=== PATIENT | female | born 1990 | race American Indian/Alaskan Native ===

== ENCOUNTER 2017-05-13 09:08 | Emergency (ER) | payer MEDICAID ==
[2017-05-13 09:31] VITALS: BP 115/83
--- NOTE | 2017-05-13 09:34 | Emergency Department Report ---
Chief Complaint: Abdominal Pain Stated Complaint: BROWN DISCHARGE Time Seen by Provider: 05/13/17 09:30 - HPI History of Present Illness: PT states she is 10 weeks . PT states she started spotting today. PT states she has been to the OB/ [facility] this in April and had appointment with specialist on 05-03-17 due to her hx of miscarriage and stillbirth. - ROS Review of Systems: + abd pain + vaginal bleeding - Exam Vital Signs: Vital Signs 05/13/17 09:25 Temperature 98.4 F Pulse Rate 98 H Respiratory 18 Rate Blood Pressure 115/83 O2 Sat by Pulse 100 Oximetry Physical Exam: pt has a flat affect abd soft and non tender MSE screening note: Focused history and physical exam performed. Due to findings the following was ordered: labs, us ED Disposition for MSE Condition: Stable Instructions: Abdominal Pain (ED)
[2017-05-13 10:13] LABS: Basophils % (Auto) 0.8 % (0.0-1.8); Hematocrit 40.1 % (30.3-42.9); Hemoglobin 13.8 gm/dl (10.1-14.3); Mean Corpuscular HGB Conc 34 % (30-34); Mean Corpuscular Hemoglobin 31 pg (28-32); Mean Corpuscular Volume 90 fl (79-97); Platelet Count 234 K/mm3 (140-440); Red Blood Count 4.45 M/mm3 (3.65-5.03); Red Cell Distribution Width 12.7 % (13.2-15.2); White Blood Count 6.2 K/mm3 (4.5-11.0)
[2017-05-13 10:20] LABS: Bilirubin,Urine NEG (Negative); Blood,Urine NEG (Negative); Ketones,Urine NEG (Negative); Leukocyte Esterase,Urine NEG (Negative); Mucus,Urine FEW /HPF; Nitrite,Urine NEG (Negative); Protein,Urine <15 mg/dL mg/dL (Negative); Urobilinogen,Urine < 2.0 mg/dL (<2.0)
[2017-05-13 10:23] LABS: Alanine Aminotransferase 9 units/L (7-56); Albumin 4.1 g/dL (3.9-5); Albumin/Globulin Ratio 1.3 %; Alkaline Phosphatase 53 units/L (35-129); Anion Gap 20 mmol/L; BUN/Creatinine Ratio 16.66; Blood Urea Nitrogen 5 mg/dL (7-17); Calcium 8.8 mg/dL (8.4-10.2); Carbon Dioxide 18 mmol/L (22-30); Chloride 101.6 mmol/L (98-107); Glucose 89 mg/dL (65-100); Potassium 3.8 mmol/L (3.6-5.0); Sodium 136 mmol/L (137-145); Total Protein 7.3 g/dL (6.3-8.2)
--- NOTE | 2017-05-13 11:35 | Emergency Department Report ---
ED HPI - General Chief complaint: Abdominal Pain Stated complaint: BROWN DISCHARGE Time Seen by Provider: 05/13/17 09:30 Source: patient Mode of arrival: Ambulatory Limitations: No Limitations - History of Present Illness Initial comments: 26-year-old A2 female here with complaint of abdominal cramping and dark brownish vaginal discharge that started last night. Patient recently had an ultrasound which showed, confirmed an IUP. No fevers chills nausea vomiting. No bright red blood. She has not had any recent sexual intercourse. MD Complaint: vaginal bleeding -: Sudden Location: pelvis Radiation: none Severity: mild Quality: cramping Improves with: none Worsens with: none Associated symptoms: abdominal pain. denies: nausea/vomiting, vaginal bleeding , headache, vision changes Vaginal bleeding: light :: Yes - Related Data Home Medications Medication Instructions Recorded Confirmed Last Taken Pnv95/Ferrous Fumarate/FA 1 each PO DAILY 08/20/16 08/22/16 08/20/16 08:00 [ [place]] Previous Rx's Medication Instructions Recorded Last Taken Type HYDROcodone/APAP 5-325 [[place] 1 each PO Q6HR PRN #10 tablet 08/20/16 08/20/16 08 :00 Rx 5/325] Ibuprofen [Motrin 800 MG tab] 800 mg PO Q8HR PRN #20 tablet 08/20/16 Unknown Rx Ibuprofen [Motrin] 800 mg PO Q8HR PRN #60 tablet 08/22/16 Unknown Rx oxyCODONE /ACETAMINOPHEN [Percocet 1 tab PO Q6HR PRN #30 tablet 08/22/16 Unknown Rx 5/325] Allergies Allergy/AdvReac Type Severity Reaction Status Date / Time banana [Banana] Allergy Itching Verified 08/20/16 17:23 Fish Containing Products Allergy Swelling Verified 08/20/16 17:23 watermelon Allergy Swelling Uncoded 08/20/16 17:23 ED Review of Systems ROS: Stated complaint: BROWN DISCHARGE Other details as noted in HPI Comment: All other systems reviewed and negative Constitutional: denies: chills, fever Eyes: denies: eye pain, eye discharge, vision change ENT: denies: ear pain, throat pain Respiratory: denies: cough, shortness of breath, wheezing Cardiovascular: denies: chest pain, palpitations Endocrine: no symptoms reported Gastrointestinal: denies: abdominal pain, nausea, diarrhea Genitourinary: denies: urgency, dysuria, discharge Musculoskeletal: denies: back pain, joint swelling, arthralgia Skin: denies: rash, lesions Neurological: denies: headache, weakness, paresthesias Psychiatric: denies: anxiety, depression Hematological/Lymphatic: denies: easy bleeding, easy bruising ED Past Medical Hx - Past Medical History Previous Medical History?: Yes Hx Hypertension: No Hx Headaches / Migraines: Yes Hx Asthma: Yes (last treated 2010) Additional medical history: eczema - Surgical History Past Surgical History?: Yes Additional Surgical History: DNC August 2016 - Social History Smoking Status: Never Smoker Substance Use Type: None - Medications Home Medications: Home Medications Medication Instructions Recorded Confirmed Last Taken Type HYDROcodone/APAP 5-325 [[place] 1 each PO Q6HR PRN #10 tablet 08/20/16 08/22/16 08:00 Rx 5/325] Ibuprofen [Motrin 800 MG tab] 800 mg PO Q8HR PRN #20 tablet 08/20/16 08/20/16 Unknown Rx Pnv95/Ferrous Fumarate/FA 1 each PO DAILY 08/20/16 08/22/16 08/20/16 08:00 History [ [place]] Ibuprofen [Motrin] 800 mg PO Q8HR PRN #60 tablet 08/22/16 Unknown Rx oxyCODONE /ACETAMINOPHEN [Percocet 1 tab PO Q6HR PRN #30 tablet 08/22/16 Unknown Rx 5/325] ED Physical Exam - General Limitations: No Limitations General appearance: alert, in no apparent distress - Head Head exam: Present: atraumatic, normocephalic - Eye Eye exam: Present: normal appearance - ENT ENT exam: Present: mucous membranes moist - Neck Neck exam: Present: normal inspection - Respiratory Respiratory exam: Present: normal lung sounds bilaterally. Absent: respiratory distress - Cardiovascular Cardiovascular Exam: Present: regular rate, normal rhythm, normal heart sounds. Absent: systolic murmur, diastolic murmur, rubs, gallop - GI/Abdominal GI/Abdominal exam: Present: soft, normal bowel sounds. Absent: distended, tenderness, guarding, rebound, rigid - Extremities Exam Extremities exam: Present: normal inspection - Back Exam Back exam: Present: normal inspection - Neurological Exam Neurological exam: Present: alert, oriented X3 - Psychiatric Psychiatric exam: Present: normal affect, normal mood - Skin Skin exam: Present: warm, dry, intact, normal color. Absent: rash ED Course Vital Signs 05/13/17 09:25 Temperature 98.4 F Pulse Rate 98 H Respiratory 18 Rate Blood Pressure 115/83 O2 Sat by Pulse 100 Oximetry ED Medical Decision Making - Lab Data Result diagrams: 05/13/17 09:49 05/13/17 09:49 Laboratory Results - last 24 hr 05/13/17 05/13/17 05/13/17 09:40 09:49 09:49 WBC 6.2 RBC 4.45 Hgb 13.8 Hct 40.1 MCV 90 MCH 31 MCHC 34 RDW 12.7 L Plt Count 234 Lymph % (Auto) 38.0 H [place] % (Auto) 10.5 H Eos % (Auto) 1.0 Baso % (Auto) 0.8 Lymph # 2.4 [place] # 0.6 Eos # 0.1 Baso # 0.0 Seg Neutrophils % 49.7 Seg Neutrophils # 3.1 Sodium 136 L Potassium 3.8 Chloride 101.6 Carbon Dioxide 18 L Anion Gap 20 BUN 5 L Creatinine 0.3 L Estimated GFR > 60 BUN/Creatinine Ratio 16.66 Glucose 89 Calcium 8.8 Total Bilirubin 0.40 AST 14 ALT 9 Alkaline Phosphatase 53 Total Protein 7.3 Albumin 4.1 Albumin/Globulin Ratio 1.3 HCG, Quant Urine Color Yellow Urine Turbidity Clear Urine pH 6.0 Ur Specific [place] 1.014 Urine Protein <15 mg/dl Urine Glucose (UA) Neg Urine Ketones Neg Urine Blood Neg Urine Nitrite Neg Urine Bilirubin Neg Urine Urobilinogen < 2.0 Ur Leukocyte Esterase Neg Urine WBC (Auto) 1.0 Urine RBC (Auto) 3.0 Urine Mucus Few Blood Type 05/13/17 05/13/17 09:49 09:49 WBC RBC Hgb Hct MCV MCH MCHC RDW Plt Count Lymph % (Auto) [place] % (Auto) Eos % (Auto) Baso % (Auto) Lymph # [place] # Eos # Baso # Seg Neutrophils % Seg Neutrophils # Sodium Potassium Chloride Carbon Dioxide Anion Gap BUN Creatinine Estimated GFR BUN/Creatinine Ratio Glucose Calcium Total Bilirubin AST ALT Alkaline Phosphatase Total Protein Albumin Albumin/Globulin Ratio HCG, Quant 86913 H Urine Color Urine Turbidity Urine pH Ur Specific [place] Urine Protein Urine Glucose (UA) Urine Ketones Urine Blood Urine Nitrite Urine Bilirubin Urine Urobilinogen Ur Leukocyte Esterase Urine WBC (Auto) Urine RBC (Auto) Urine Mucus Blood Type B POSITIVE - Medical Decision Making 26-year-old female here with complaints of abdominal cramping in new onset vaginal discharge, which likely is dark brown blood. Patient started feeling symptoms last night. She appears otherwise well. Denies fevers chills nausea vomiting. Her beta hCG 65,000. Critical care attestation.: If time is entered above; I have spent that time in minutes in the direct care of this critically ill patient, excluding procedure time. ED Disposition Clinical Impression: Vaginal bleeding before 22 weeks gestation Disposition: DC- TO HOME OR SELFCARE Is pt being admited?: No Condition: Stable Instructions: Abdominal Pain (ED) Additional Instructions: Please follow-up with your OB. Referrals: PRIMARY CARE [Primary Care Provider] - 3-5 Days
--- NOTE | 2017-05-13 11:39 | Ultrasound Report ---
ULTRASOUND OB LESS THAN 14 WEEKS - TRANSABDOMINAL AND TRANSVAGINAL INDICATION: 10 weeks , vaginal bleeding. Serum beta-hCG 65,261 units. COMPARISON: None similar during this gestation. FINDINGS: Transabdominal and transvaginal pelvic sonography performed in this patient with estimated menstrual age of 10 weeks and 2 days per outside ultrasound. It demonstrates an anteverted, gravid uterus estimated at 9.2 x 5.3 x 6.7 cm with a single, viable intrauterine gestation with heart rate of 176 beats per minute. Mean crown-rump length of 3.7 cm corresponds to 10 weeks and 4 days. No significant free fluid. Unremarkable 3.2 x 1.2 x 1.2 cm right ovary. Left ovary 3.2 x 1.7 x 1.5 cm with a 1.2 cm complex slightly hypoechoic intrinsic focus, image 28. CONCLUSION: 1. Single, live intrauterine gestation with an ultrasound estimated age of 10 weeks and 4 days and MINOO of 12/05/2017. 2. Other findings, as above. Thank you for the opportunity to participate in this patient's care.
== END 2017-05-13 14:30 | disposition home or self-care (01) ==
LOC: ED 09:08
DX: O46.91 Antepartum hemorrhage, unspecified, first trimester (principal); G43.909 Migraine, unspecified, not intractable, without status migrainosus; J45.909 Unspecified asthma, uncomplicated; Z91.013 Allergy to seafood; Z91.018 Allergy to other foods; Z3A.01 Less than 8 weeks gestation of pregnancy
CPT/HCPCS: 36415; 76801; 76817; 80053; 81001; 84702; 85025; 86900; 86901

== ENCOUNTER 2017-10-14 08:26 | Emergency (ER) | payer MEDICAID ==
[2017-10-14] MEDS ORDERED: ZOFRAN IV ONE (14:16)
[2017-10-14] MEDS ORDERED: NACL 0.9% 1000 ML 1,000 ML IV ONE (14:16)
--- NOTE | 2017-10-14 14:18 | Emergency Department Report ---
Blank Doc - Documentation Documentation: Patient is 31 years old female, 32 weeks , presented with cough and shortness of breath and tachycardia for the last 3 days. Patient also stated that she been having nausea and vomiting. Patient denied any abdominal pain, vaginal bleeding or vaginal discharge. On exam patient is moderately dehydrated with dry skin. Heart exam tachycardia. Abdomen is gravid but nontender. Patient denied any [id number] use for her cough takes examined her current tachycardia. Patient will need further workup and will need to be moved to [place] ED.
[2017-10-14 14:42] LABS: Hematocrit 35.4 % (30.3-42.9); Hemoglobin 11.8 gm/dl (10.1-14.3); Mean Corpuscular HGB Conc 33 % (30-34); Mean Corpuscular Hemoglobin 30 pg (28-32); Mean Corpuscular Volume 89 fl (79-97); Platelet Count 145 K/mm3 (140-440); Red Blood Count 3.99 M/mm3 (3.65-5.03); Red Cell Distribution Width 14.3 % (13.2-15.2)
--- NOTE | 2017-10-14 14:49 | XRay Report ---
AP CHEST: HISTORY: Dyspnea AP view of the chest demonstrates a normal mediastinal and cardiac contour with clear lungs and normal bony and soft tissue structures. IMPRESSION: Unremarkable AP chest.
[2017-10-14 15:05] LABS: Alanine Aminotransferase 20 units/L (7-56); Albumin 3.5 g/dL (3.9-5); BUN/Creatinine Ratio 13; Blood Urea Nitrogen 5 mg/dL (7-17); Calcium 8.6 mg/dL (8.4-10.2); Hemolysis Index 15
[2017-10-14 15:25] LABS: Band Neutrophils # (Manual) 1.5 K/mm3; Basophils % (Manual) 0 % (0.0-1.8); Eosinophils % (Manual) 0 % (0.0-4.3); Total Cells Counted 100
[2017-10-14 15:26] LABS: Ovalocytes Few; Platelet Estimate Consistent w Auto
[2017-10-14 15:55] VITALS: BP 118/75
[2017-10-14 16:12] LABS: Bacteria,Urine 2+ /HPF (Negative); Bilirubin,Urine NEG (Negative); Blood,Urine NEG (Negative); Color,Urine Yellow (Yellow); Mucus,Urine FEW /HPF; Nitrite,Urine NEG (Negative); Protein,Urine <15 mg/dL mg/dL (Negative); RBC,Urine < 1.0 /HPF (0.0-6.0); WBC,Urine < 1.0 /HPF (0.0-6.0)
[2017-10-14 16:14] LABS: HCG Qualitative,Urine Positive (Negative)
--- NOTE | 2017-10-14 16:20 | Emergency Department Report ---
- General Chief Complaint: Upper Respiratory Infection Stated Complaint: EVERYTHING HURTS Time Seen by Provider: 10/14/17 14:10 Source: patient Mode of arrival: Ambulatory Limitations: No Limitations - History of Present Illness Initial Comments: This is a 27-year-old female nontoxic, well nourished in appearance, no acute signs of distress presents to the ED with c/o of productive cough, sore throat, body aches, rhinorrhea, nasal congestion x4 days. Patient describes productive cough as yellow mucus production. Patient stated had shortness of breathe but stated it is only when she coughs but otherwise denies Shortness of breathe. Patient agrees to sick contact with child which has the upper rest or infection. Patient denies any recent travels, long car, recent hospital stays. Patient denies any calf pain or calf tenderness. Patient denies any chest pain, short of breath, fever, chills, nausea, vomiting, hemoptysis, numbness, tingling, headache or stiff neck. Patient she is currently 32 weeks with normal . She denies any vaginal discharge, abdominal pain, vaginal bleeding. Patient denies any drug allergies. Past medical history includes asthma and headache. MD Complaint: cough, sore throat, rhinorrhea, nasal congestion -: days(s) (4) Severity: mild Severity scale (0 -10): 8 Quality: aching Consistency: constant Improves With: nothing Worsens With: nothing Context: sick contacts Associated Symptoms: rhinorrhea, nasal congestion, sore throat, cough. denies: fever, chills, myalgias, diaphoresis, headache, stiff neck, chest pain, shortness of breath, abdominal pain, nausea, vomiting, diarrhea, dysuria, rash, confusion, right sweats, weight loss, epistaxis, hoarseness, ear pain Treatments Prior to Arrival: none - Related Data Home Medications Medication Instructions Recorded Confirmed Last Taken Pnv No.95/Ferrous Fum/Folic AC 1 each PO DAILY 08/20/16 08/22/16 08/20/16 08:00 [ Caplet] Previous Rx's Medication Instructions Recorded Last Taken Type HYDROcodone/APAP 5-325 [[place] 1 each PO Q6HR PRN #10 tablet 08/20/16 08/20/16 08 :00 Rx 5/325] Ibuprofen [Motrin 800 MG tab] 800 mg PO Q8HR PRN #20 tablet 08/20/16 Unknown Rx Ibuprofen [Motrin] 800 mg PO Q8HR PRN #60 tablet 08/22/16 Unknown Rx oxyCODONE /ACETAMINOPHEN [Percocet 1 tab PO Q6HR PRN #30 tablet 08/22/16 Unknown Rx 5/325] Acetaminophen 500 mg PO Q6H PRN #30 tablet 10/14/17 Unknown Rx Amoxicillin/K Clav Tab [Augmentin 1 tab PO Q12HR #20 tab 10/14/17 Unknown Rx 875 mg] Allergies Allergy/AdvReac Type Severity Reaction Status Date / Time banana [Banana] Allergy Itching Verified 10/14/17 08:43 Fish Containing Products Allergy Swelling Verified 10/14/17 08:43 watermelon Allergy Swelling Uncoded 10/14/17 08:43 ED Review of Systems ROS: Stated complaint: EVERYTHING HURTS Other details as noted in HPI Constitutional: denies: chills, fever Eyes: denies: eye pain, eye discharge, vision change ENT: throat pain. denies: ear pain Respiratory: cough. denies: shortness of breath, wheezing Cardiovascular: denies: chest pain, palpitations Endocrine: no symptoms reported Gastrointestinal: denies: abdominal pain, nausea, diarrhea Genitourinary: denies: urgency, dysuria, discharge Musculoskeletal: denies: back pain, joint swelling, arthralgia Skin: denies: rash, lesions Neurological: denies: headache, weakness, paresthesias Psychiatric: denies: anxiety, depression Hematological/Lymphatic: denies: easy bleeding, easy bruising ED Past Medical Hx - Past Medical History Previous Medical History?: Yes Hx Hypertension: No Hx Headaches / Migraines: Yes Hx Asthma: Yes (last treated 2010) Additional medical history: eczema - Surgical History Past Surgical History?: Yes Additional Surgical History: DNC August 2016 - Social History Smoking Status: Never Smoker Substance Use Type: None - Medications Home Medications: Home Medications Medication Instructions Recorded Confirmed Last Taken Type HYDROcodone/APAP 5-325 [[place] 1 each PO Q6HR PRN #10 tablet 08/20/16 08/22/16 08:00 Rx 5/325] Ibuprofen [Motrin 800 MG tab] 800 mg PO Q8HR PRN #20 tablet 08/20/16 08/20/16 Unknown Rx Pnv No.95/Ferrous Fum/Folic AC 1 each PO DAILY 08/20/16 08/22/16 08/20/16 08:00 History [ [place]] Ibuprofen [Motrin] 800 mg PO Q8HR PRN #60 tablet 08/22/16 Unknown Rx oxyCODONE /ACETAMINOPHEN [Percocet 1 tab PO Q6HR PRN #30 tablet 08/22/16 Unknown Rx 5/325] Acetaminophen 500 mg PO Q6H PRN #30 tablet 10/14/17 Unknown Rx Amoxicillin/K Clav Tab [Augmentin 1 tab PO Q12HR #20 tab 10/14/17 Unknown Rx 875 mg] ED Physical Exam - General Limitations: No Limitations General appearance: alert, in no apparent distress - Head Head exam: Present: atraumatic, normocephalic - Eye Eye exam: Present: normal appearance, PERRL, EOMI Pupils: Present: normal accommodation - ENT ENT exam: Present: mucous membranes moist, TM's normal bilaterally, normal external ear exam - Expanded ENT Exam Expanded Ear exam: Present: normal external inspection Mouth exam: Present: normal external inspection, tongue normal. Absent: drooling, trismus, muffled voice, tongue elevation, laceration Teeth exam: Present: normal inspection Throat exam: Positive: tonsillar erythema, tonsillomegaly (2+), other (Uvula midline. No abscess or swelling. ). Negative: tonsillar exudate, R peritonsillar mass, L peritonsillar mass - Neck Neck exam: Present: normal inspection, full ROM, lymphadenopathy (bilateral tonsillar). Absent: tenderness, meningismus, thyromegaly - Respiratory Respiratory exam: Present: normal lung sounds bilaterally. Absent: respiratory distress, wheezes, rales, rhonchi, stridor, chest wall tenderness, accessory muscle use, decreased breath sounds, prolonged expiratory - Cardiovascular Cardiovascular Exam: Present: regular rate, normal rhythm, tachycardia, normal heart sounds. Absent: irregular rhythm, systolic murmur, diastolic murmur, rubs , gallop - GI/Abdominal GI/Abdominal exam: Present: soft, normal bowel sounds. Absent: distended, tenderness, guarding, rebound, rigid - Rectal Rectal exam: Present: deferred - Extremities Exam Extremities exam: Present: normal inspection, full ROM, normal capillary refill. Absent: tenderness, pedal edema, joint swelling, calf tenderness - Back Exam Back exam: Present: normal inspection, full ROM. Absent: tenderness, CVA tenderness (R), CVA tenderness (L), muscle spasm, paraspinal tenderness, vertebral tenderness, rash noted - Neurological Exam Neurological exam: Present: alert, oriented X3, CN II-XII intact, normal gait, reflexes normal - Psychiatric Psychiatric exam: Present: normal affect, normal mood - Skin Skin exam: Present: warm, dry, intact, normal color. Absent: rash ED Course Vital Signs 10/14/17 10/14/17 08:31 15:54 Temperature 98.6 F 98.9 F Pulse Rate 149 H 129 H Respiratory 18 16 Rate Blood Pressure 129/75 Blood Pressure 118/75 [Left] O2 Sat by Pulse 97 100 Oximetry - Reevaluation(s) Reevaluation #1: 10/14/17 16:35 Patient is speaking in full sentences with no signs of distress noted. - Consultations Consultation #1: 10/14/17 16:35 Patient has been consulted with Dr. Coyle about patient history, physical exam , and labs and examined and screened patient and agrees to ED plan of care and discharge plan of care. ED Medical Decision Making - Lab Data Result diagrams: 10/14/17 14:28 10/14/17 14:28 - Medical Decision Making This is a 27-year-old female that presents with upper respiratory infection and tonsillitis. Patient is stable and was examined by me and Dr. Coyle. Prior to my exam, a chest x-ray has been obtained and dictated by radiologist with normal exam. Patient is notified of x-ray results with no questions noted. Due to patient having symptoms of upper respiratory infection and tonsillitis and worsening I will treat patient empirically Augmentin. Patient is above the >72 hour window for tamiflu. Patient was instructed to increase hydration, rest and take Tylenol for fever episodes. Patient received Tylenol, 1L of Normal saline, and zofran in the ED. Vitals stable. Patient is nonfebrile. Heart rate decreased. Labs within normal limits. Patient was orally hydrated and patient tolerated well known nausea or vomiting. Patient was instructed Follow-up with a primary care doctor in 3-5 days or if symptoms worsen and continue return to emergency room as soon as possible. At time time of discharge, the patient does not seem toxic or ill in appearance. No acute signs of distress noted. Patient agrees to discharge treatment plan of care. No further questions noted by the patient. Critical care attestation.: If time is entered above; I have spent that time in minutes in the direct care of this critically ill patient, excluding procedure time. ED Disposition Clinical Impression: Tonsillitis Upper respiratory infection Qualifiers: URI type: unspecified URI Qualified Code(s): J06.9 - Acute upper respiratory infection, unspecified Disposition: TO HOME OR SELFCARE Is pt being admited?: No Does the pt Need Aspirin: No Condition: Stable Instructions: Upper Respiratory Infection (ED), Electrolyte Supplement (By mouth), Acetaminophen (By mouth), Amoxicillin/Clavulanate Potassium (By mouth) Additional Instructions: Follow-up with a primary care doctor in 3-5 days or if symptoms worsen and continue return to emergency room as soon as possible. Increased rest, hydration, and take Tylenol as prescribed during Fever episode. Prescriptions: Acetaminophen 500 mg PO Q6H PRN #30 tablet PRN Reason: fever/pain Amoxicillin/K Clav Tab [Augmentin 875 mg] 1 tab PO Q12HR #20 tab Referrals: [facility] [Other] - 3-5 Days PRIMARY CAREMD [Referring] - 3-5 Days JASMYN GUZMAN MD [Staff Physician] - 3-5 Days [facility] [Outside] - 3-5 Days [facility] [Outside] - 3-5 Days Forms: Work/School Release Form(ED)
[2017-10-14] MEDS ORDERED: TYLENOL PO ONE (16:36)
== END 2017-10-14 17:00 | disposition home or self-care (01) ==
LOC: ED 08:26
DX: J06.9 Acute upper respiratory infection, unspecified (principal); J03.90 Acute tonsillitis, unspecified; G43.909 Migraine, unspecified, not intractable, without status migrainosus; Z91.013 Allergy to seafood; Z91.018 Allergy to other foods
CPT/HCPCS: 36415; 71045; 80053; 81001; 81025; 85007; 85025; 93005; 93010; 96361; 96374; 99284; J2405; J7030

== ENCOUNTER 2017-11-05 12:02 | Outpatient (CLI) | payer MEDICAID ==
[2017-11-05] MEDS ORDERED: LACTATED RINGERS 500 ML IV ONE (12:27)
[2017-11-05] MEDS ORDERED: BRETHINE SUB-Q PRN (14:39)
[2017-11-05 15:16] VITALS: BP 129/78
[2017-11-05] MEDS ORDERED: NACL 0.9% 1000 ML 1,000 ML IV ONE (16:03)
[2017-11-05] MEDS ORDERED: VISTARIL PO PRN (19:26)
== END 2017-11-05 19:35 | disposition home or self-care (01) ==
LOC: TRG 12:02
PROVIDERS: ATTEND Obstetrics & Gynecology
DX: O47.03 False labor before 37 completed weeks of gestation, third trimester (principal); Z3A.35 35 weeks gestation of pregnancy
CPT/HCPCS: 59025; 85460; 96360; 96361; J7030; Q0177